=== PATIENT | female | born 1995 | race Caucasian/White ===

== ENCOUNTER 2024-07-16 14:23 | Emergency (ER) | payer OTHER ==
[~2024-07-16] VITALS: Ht 162.6 cm; Wt 80.0 kg
[2024-07-16] MEDS ORDERED: htn med PO (14:26)
[2024-07-16] MEDS ORDERED: [UNRECOGNIZED DRUG - REMARK] PO (14:26)
[2024-07-16 14:30] VITALS: TEMP 98.2
[2024-07-16 15:10] VITALS: BP 136/84; PULSE 81; RESP 17; O2SAT 98
[2024-07-16 15:17] LABS: COVID AG,FIA SOURCE NASAL SWAB
[2024-07-16 15:38] LABS: INFLUENZA TYPE A NEGATIVE FOR TYPE A (NEGATIVE); INFLUENZA TYPE B NEGATIVE FOR TYPE B (NEGATIVE); SARS-COV2 (COVID) ANTIGEN,FIA Negative (Negative)
[2024-07-16] MEDS ORDERED: BACTDSB PO (16:42)
[2024-07-16] MEDS: DEXAMETHASONE SOD PHOS 4 MG/ML 5 ML VIAL IM ONE (16:53)
[2024-07-16] MEDS: CefTRIAXone SODIUM 1 GM/VIAL IM ONE (16:53)
[2024-07-16] MEDS: LIDOCAINE/PF 1% 2 ML VIAL IM ONE (16:54)
== END 2024-07-16 17:08 | disposition home or self-care (01) ==
LOC: EMS 14:23
DX: H66.93 Otitis media, unspecified, bilateral (principal); J03.90 Acute tonsillitis, unspecified; I10 Essential (primary) hypertension; E03.9 Hypothyroidism, unspecified; Z20.822 Contact with and (suspected) exposure to COVID-19
CPT/HCPCS: 99284; 87426; 87804; 96372; J0696; J1100; J3490

== ENCOUNTER 2025-04-20 19:48 | Emergency (ER) | payer OTHER ==
[~2025-04-20] VITALS: Ht 175.3 cm; Wt 75.0 kg
[~2025-04-20 19:48] MED LIST: BACTDSB PO; [UNRECOGNIZED DRUG - REMARK] PO; htn med PO
[2025-04-20 20:22] LABS: HCG,QUAL URINE NEGATIVE (NEGATIVE)
[2025-04-20 20:26] LABS: APPEARANCE,URINE HAZY (CLEAR); GLUCOSE, URINE (UA) NEGATIVE (NEGATIVE); LEUKOCYTE ESTERASE ,URINE LARGE (NEGATIVE); NITRATE,URINE NEGATIVE (NEGATIVE); OCCULT BLOOD,URINE NEGATIVE (NEGATIVE); SPECIFIC GRAVITIY, URINE 1.015 (1.003-1.030)
[2025-04-20 20:34] LABS: SQUAMOUS EPITHELIAL CELL,UR Many /LPF (None Seen)
[2025-04-20] MEDS: LIDOCAINE 5% TRANSDERMAL PATCH TD ONE ×2 (20:52→21:24)
[2025-04-20] MEDS: KETOROLAC TROMETHAMINE 30 MG/ML VIAL IM ONE (20:52)
[2025-04-20] MEDS ORDERED: IBUP-1493 PO (21:51)
[2025-04-20] MEDS ORDERED: METH-659 PO (21:51)
[2025-04-20 21:59] VITALS: BP 149/100; PULSE 76; RESP 18; TEMP 98.7; O2SAT 100
== END 2025-04-20 22:29 | disposition home or self-care (01) ==
LOC: EMS 19:48
DX: S39.012A Strain of muscle, fascia and tendon of lower back, initial encounter (principal); M54.42 Lumbago with sciatica, left side; I10 Essential (primary) hypertension; E03.9 Hypothyroidism, unspecified; X50.9XXA Other and unspecified overexertion or strenuous movements or postures, initial encounter; Z79.899 Other long term (current) drug therapy; Y93.E9 Activity, other interior property and clothing maintenance; Y92.89 Other specified places as the place of occurrence of the external cause; Y99.8 Other external cause status
CPT/HCPCS: 99283; 81001; 84703; 87086; 96372; J1885